=== PATIENT | female | born 1965 | race Caucasian/White ===

== ENCOUNTER → 2023-11-16 07:43 | Outpatient (REF) | payer BC, SELFPAY | LOC: EMG 07:43 | PROVIDERS: ATTENDING PHYSICIAN Physician Assistant Surgical | DX: M79.605 Pain in left leg (principal); S82.442A Displaced spiral fracture of shaft of left fibula, initial encounter for closed fracture; Z47.89 Encounter for other orthopedic aftercare | CPT/HCPCS: 95886; 95911 ==

== ENCOUNTER → 2023-11-18 08:23 | Outpatient (REF) | payer BC, SELFPAY | LOC: RAD 08:23 | PROVIDERS: ATTENDING PHYSICIAN Physician Assistant Surgical; FAMILY PHYSICIAN Family Medicine | DX: M79.605 Pain in left leg (principal); S82.442A Displaced spiral fracture of shaft of left fibula, initial encounter for closed fracture; Z47.89 Encounter for other orthopedic aftercare | CPT/HCPCS: 73700 ==

== ENCOUNTER 2024-01-17 06:12 | Day surgery (SDC) | payer BC, SELFPAY ==
[2024-01-17] VITALS (9 sets, daily range): BP systolic 104–123; BP diastolic 56–75; BMI 21.0
[2024-01-17] MEDS: CELEBREX 200 MG PO (11:23)
[2024-01-17] MEDS: TYLENOL 1000 MG PO (11:23)
[2024-01-17] MEDS: NORMOSOL-R/PLASMALYTE-A 1000 IV (11:39)
[2024-01-17] MEDS: DILAUDID 0.5 MG IV (14:35)
--- NOTE | 2024-01-17 14:48 | SUR.PHASEI ---
Alert, awake, ignacia ice chips well, discomfort tolerable
== END 2024-01-17 15:52 | disposition home or self-care (01) ==
LOC: SDS 06:12
PROVIDERS: ATTENDING PHYSICIAN Orthopaedic Surgery Hand Surgery; FAMILY PHYSICIAN Family Medicine
DX: T84.84XA Pain due to internal orthopedic prosthetic devices, implants and grafts, initial encounter (principal); G89.18 Other acute postprocedural pain; M79.605 Pain in left leg
CPT/HCPCS: 20680; 93005